=== PATIENT | female | born 1990 | race African-American/Black ===

== ENCOUNTER 2018-09-06 18:12 | Emergency (ER) | payer OTHER ==
[2018-09-06 19:54] LABS: Basophils % (A) 0 %; Eosinophils # (A) 0.2 k/uL (0-0.7); Eosinophils % (A) 2 %; HCT 37.6 % (34.0-46.0); HGB 12.8 gm/dL (11.4-16.0); Lymphocytes # (A) 2.3 k/uL (1.0-4.8); Lymphocytes % (A) 33 %; MCH 32.4 pg (25.0-35.0); MCHC 34.2 g/dL (31.0-37.0); MCV 94.7 fL (80.0-100.0); Mean Platelet Volume 7.8; Monocytes # (A) 0.3 k/uL (0-1.0); Monocytes % (A) 4 %; Neutrophils # (A) 4.2 k/uL (1.3-7.7); Neutrophils % (A) 59 %; Platelet Count 187 k/uL (150-450); RBC 3.97 m/uL (3.80-5.40); WBC 7.1 k/uL (3.8-10.6)
[2018-09-06 20:08] LABS: ALT 20 U/L (9-52); AST 22 U/L (14-36); Albumin 4.4 g/dL (3.5-5.0); Alkaline Phosphatase 67 U/L (38-126); Amylase 46 U/L (30-110); Anion Gap 10 mmol/L; Blood Urea Nitrogen 13 mg/dL (7-17); Calcium 9.3 mg/dL (8.4-10.2); Carbon Dioxide 22 mmol/L (22-30); Chloride 107 mmol/L (98-107); Glucose 124 mg/dL (74-99); Lipase 135 U/L (23-300); Potassium 3.5 mmol/L (3.5-5.1); Sodium 139 mmol/L (137-145); Total Bilirubin 0.4 mg/dL (0.2-1.3); Total Protein 7.4 g/dL (6.3-8.2)
[2018-09-06 20:48] LABS: Appearance,Urine Clear (Clear); Bilirubin,Urine Negative (Negative); Blood,Urine Negative (Negative); Color,Urine Yellow; Glucose,Urine (UA) Negative (Negative); Ketones,Urine Negative (Negative); Leukocyte Esterase,Urine Negative (Negative); Nitrite,Urine Negative (Negative); PH, Urine 6.5 (5.0-8.0); Protein,Urine Trace (Negative); Specific Gravity,Urine 1.028 (1.001-1.035)
--- NOTE | 2018-09-06 21:45 | ED ---
Abdominal Pain HPI - General Chief Complaint: Abdominal Pain Stated Complaint: abdominal pain/early Time Seen by Provider: 09/06/18 20:29 Source: patient Mode of arrival: ambulatory Limitations: no limitations - History of Present Illness Initial Comments: 27-year-old female patient presents to the emergency department today for evaluation of bilateral lower pelvic pain. Patient states that this pain started yesterday. Patient states she did have a positive test at home yesterday. Patient states her last period was 4 weeks ago. She is , with an ectopic to the left fallopian tube in March. Patient states that her period was of normal length and intensity. Patient denies any radiation of her pain to the back. She denies any abnormal vaginal bleeding or discharge. Denies any hematuria, dysuria, urinary frequency, urinary urgency. Denies any fevers or chills. Denies any constipation or diarrhea. Patient denies any recent rash, shortness breath, chest pain, numbness, tingling, dizziness, weakness, headache, visual changes, or any other complaints. - Related Data Home Medications Medication Instructions Recorded Confirmed ALPRAZolam [Xanax] 0.5 mg PO TID PRN 04/06/18 04/06/18 Albuterol Inhaler [Ventolin Hfa 1 - 2 puff PO Q4HR PRN 04/06/18 04/06/18 Inhaler] Benazepril HCl 40 mg PO DAILY 04/06/18 04/06/18 Chlorthalidone 25 mg PO BID 04/06/18 04/06/18 PARoxetine HCL [Paxil] 40 mg PO DAILY 04/06/18 04/06/18 Phentermine HCl [Adipex-P] 37.5 mg PO DAILY 04/06/18 04/06/18 Spironolactone [Aldactone] 25 mg PO DAILY 04/06/18 04/06/18 amLODIPine [Norvasc] 10 mg PO DAILY 04/06/18 04/06/18 Allergies Allergy/AdvReac Type Severity Reaction Status Date / Time No Known Allergies Allergy Verified 09/06/18 18:39 Review of Systems ROS Statement: Those systems with pertinent positive or pertinent negative responses have been documented in the HPI. ROS Other: All systems not noted in ROS Statement are negative. Past Medical History Past Medical History: Hypertension History of Any Multi-Drug Resistant Organisms: None Reported Past Surgical History: No Surgical Hx Reported Past Anesthesia/Blood Transfusion Reactions: No Reported Reaction Past Psychological History: Anxiety Smoking Status: Current every day smoker Past Alcohol Use History: Occasional Past Drug Use History: Marijuana - Past Family History Mother Family Medical History: No Reported History General Exam Limitations: no limitations General appearance: alert, in no apparent distress, other (Well-developed, well- nourished adult female patient in no acute distress. Vital signs upon presentation are temperature 98.6F, pulse 75, respirations 20, blood pressure 201/99, pulse ox 99% on room air.) Eye exam: Present: normal appearance, PERRL, EOMI. Absent: scleral icterus, conjunctival injection, periorbital swelling ENT exam: Present: normal exam, normal oropharynx, mucous membranes moist Respiratory exam: Present: normal lung sounds bilaterally. Absent: respiratory distress, wheezes, rales, rhonchi, stridor Cardiovascular Exam: Present: regular rate, normal rhythm, normal heart sounds. Absent: systolic murmur, diastolic murmur, rubs, gallop, clicks GI/Abdominal exam: Present: soft, normal bowel sounds. Absent: distended, tenderness, guarding, rebound, rigid Back exam: Present: normal inspection. Absent: CVA tenderness (R), CVA tenderness (L) Neurological exam: Present: alert, oriented X3, CN II-XII intact Psychiatric exam: Present: normal affect, normal mood Skin exam: Present: warm, dry, intact, normal color. Absent: rash Course Vital Signs 09/06/18 09/06/18 09/06/18 18:37 23:31 23:35 Temperature 98.6 F Pulse Rate 75 Respiratory 20 Rate Blood Pressure 201/99 149/95 149/85 O2 Sat by Pulse 99 Oximetry 09/07/18 00:18 Temperature 97.8 F Pulse Rate 70 Respiratory 16 Rate Blood Pressure 148/98 O2 Sat by Pulse 100 Oximetry Medical Decision Making - Medical Decision Making 27-year-old female patient presents to the emergency department today for evaluation of mild bilateral pelvic pain. Physical examination is unremarkable. Abdomen is soft and nontender. Patient denies vaginal bleeding or discharge. Did have a positive test at home yesterday. Last period was 4 weeks ago. Labs reviewed and did reveal an hCG around 100. Urinalysis showed no evidence for infection. Did perform ultrasound to rule out ectopic , there is no intrauterine gestation and no adnexal masses were noted. This most likely reflects very early . Did discuss findings and results with the patient. She is instructed to follow-up with her primary care physician and her [facility] for recheck as soon as possible. Return parameters were discussed in detail. She verbalizes understanding and agrees with this plan - Lab Data Result diagrams: 09/06/18 19:44 09/06/18 19:44 Lab Results 09/06/18 09/06/18 09/06/18 Range/Units 19:44 19:44 20:40 WBC 7.1 (3.8-10.6) k/uL RBC 3.97 (3.80-5.40) m/uL Hgb 12.8 (11.4-16.0) gm/dL Hct 37.6 (34.0-46.0) % MCV 94.7 (80.0-100.0) fL MCH 32.4 (25.0-35.0) pg MCHC 34.2 (31.0-37.0) g/dL RDW 13.0 (11.5-15.5) % Plt Count 187 (150-450) k/uL Neutrophils % 59 % Lymphocytes % 33 % Monocytes % 4 % Eosinophils % 2 % Basophils % 0 % Neutrophils # 4.2 (1.3-7.7) k/uL Lymphocytes # 2.3 (1.0-4.8) k/uL Monocytes # 0.3 (0-1.0) k/uL Eosinophils # 0.2 (0-0.7) k/uL Basophils # 0.0 (0-0.2) k/uL Sodium 139 (137-145) mmol/L Potassium 3.5 (3.5-5.1) mmol/L Chloride 107 (98-107) mmol/L Carbon Dioxide 22 (22-30) mmol/L Anion Gap 10 mmol/L BUN 13 (7-17) mg/dL Creatinine 0.89 (0.52-1.04) mg/dL Est GFR (CKD-EPI)AfAm >90 (>60 ml/min/1.73 sqM) Est GFR (CKD-EPI)NonAf 89 (>60 ml/min/1.73 sqM) Glucose 124 H (74-99) mg/dL Calcium 9.3 (8.4-10.2) mg/dL Total Bilirubin 0.4 (0.2-1.3) mg/dL AST 22 (14-36) U/L ALT 20 (9-52) U/L Alkaline Phosphatase 67 (38-126) U/L Total Protein 7.4 (6.3-8.2) g/dL Albumin 4.4 (3.5-5.0) g/dL Amylase 46 (30-110) U/L Lipase 135 (23-300) U/L HCG, Quant mIU/mL Urine Color Yellow Urine Appearance Clear (Clear) Urine pH 6.5 (5.0-8.0) Ur Specific [place] 1.028 (1.001-1.035) Urine Protein Trace H (Negative) Urine Glucose (UA) Negative (Negative) Urine Ketones Negative (Negative) Urine Blood Negative (Negative) Urine Nitrite Negative (Negative) Urine Bilirubin Negative (Negative) Urine Urobilinogen 3.0 (<2.0) mg/dL Ur Leukocyte Esterase Negative (Negative) 09/06/18 Range/Units 20:56 WBC (3.8-10.6) k/uL RBC (3.80-5.40) m/uL Hgb (11.4-16.0) gm/dL Hct (34.0-46.0) % MCV (80.0-100.0) fL MCH (25.0-35.0) pg MCHC (31.0-37.0) g/dL RDW (11.5-15.5) % Plt Count (150-450) k/uL Neutrophils % % Lymphocytes % % Monocytes % % Eosinophils % % Basophils % % Neutrophils # (1.3-7.7) k/uL Lymphocytes # (1.0-4.8) k/uL Monocytes # (0-1.0) k/uL Eosinophils # (0-0.7) k/uL Basophils # (0-0.2) k/uL Sodium (137-145) mmol/L Potassium (3.5-5.1) mmol/L Chloride (98-107) mmol/L Carbon Dioxide (22-30) mmol/L Anion Gap mmol/L BUN (7-17) mg/dL Creatinine (0.52-1.04) mg/dL Est GFR (CKD-EPI)AfAm (>60 ml/min/1.73 sqM) Est GFR (CKD-EPI)NonAf (>60 ml/min/1.73 sqM) Glucose (74-99) mg/dL Calcium (8.4-10.2) mg/dL Total Bilirubin (0.2-1.3) mg/dL AST (14-36) U/L ALT (9-52) U/L Alkaline Phosphatase (38-126) U/L Total Protein (6.3-8.2) g/dL Albumin (3.5-5.0) g/dL Amylase (30-110) U/L Lipase (23-300) U/L HCG, Quant 105.7 mIU/mL Urine Color Urine Appearance (Clear) Urine pH (5.0-8.0) Ur Specific [place] (1.001-1.035) Urine Protein (Negative) Urine Glucose (UA) (Negative) Urine Ketones (Negative) Urine Blood (Negative) Urine Nitrite (Negative) Urine Bilirubin (Negative) Urine Urobilinogen (<2.0) mg/dL Ur Leukocyte Esterase (Negative) - Radiology Data Radiology results: report reviewed, image reviewed Transvaginal ultrasound of the pelvis was obtained. Report was reviewed in its entirety. Impression by Dr. Thompson shows no intrauterine gestation. 2 cm hemorrhagic right ovarian corpus luteum cyst. 5 cm septated right ovarian cyst. Left ovary unremarkable. No evidence for torsion. No free fluid. No adnexal mass. Disposition Clinical Impression: Early stage of , Pelvic pain Disposition: HOME SELF-CARE Condition: Good Instructions (If sedation given, give patient instructions): Pelvic Pain in Women (ED), Abdominal Pain in (ED) Additional Instructions: Increase fluids. Follow-up with her primary care physician for recheck in 1-2 days. Follow-up with [facility] for recheck as soon as possible. Return to the emergency department immediately for any new, worsening, or concerning symptoms. Is patient prescribed a controlled substance at d/c from ED?: No Referrals: German Dalton MD [Primary Care Provider] - 1-2 days Time of Disposition: 00:08
--- NOTE | 2018-09-06 23:23 | US ---
EXAM: US Pelvis, Transvaginal CLINICAL HISTORY: ITS.REASON US Reason: Pain TECHNIQUE: Real-time transvaginal pelvic ultrasound (complete) with image documentation. Transvaginal imaging was used for better evaluation of the endometrium and adnexa. COMPARISON: No relevant prior studies available. FINDINGS: No intrauterine gestation. 2 cm hemorrhagic right ovarian corpus luteum cyst. 5 cm septated right ovarian cyst. Left ovary unremarkable. No evidence for torsion. No free fluid. No adnexal mass. IMPRESSION: See above
[2018-09-07 00:23] VITALS: BP 148/98; PULSE 70; RESP 16; TEMP 97.8
== END 2018-09-07 00:23 | disposition home or self-care (01) ==
LOC: EC 18:12
DX: O99.89 Other specified diseases and conditions complicating pregnancy, childbirth and the puerperium (principal); R10.2 Pelvic and perineal pain; O34.81 Maternal care for other abnormalities of pelvic organs, first trimester; N83.11 Corpus luteum cyst of right ovary; O10.911 Unspecified pre-existing hypertension complicating pregnancy, first trimester; O99.341 Other mental disorders complicating pregnancy, first trimester; F41.9 Anxiety disorder, unspecified; O99.331 Smoking (tobacco) complicating pregnancy, first trimester; F17.200 Nicotine dependence, unspecified, uncomplicated; Z3A.01 Less than 8 weeks gestation of pregnancy
CPT/HCPCS: 36415; 76801; 76817; 80053; 81003; 82150; 83690; 84702; 85025; 99284

== ENCOUNTER → 2018-09-12 | Outpatient (CLI) | payer OTHER ==
--- NOTE | 2018-09-12 15:52 | US ---
EXAMINATION TYPE: Transabdominal DATE OF EXAM: 09/12/2018 3:37 PM COMPARISON: NONE CLINICAL HISTORY: R68.89 Abn findings. EXAM PERFORMED: Transvaginal (TV) and Transabdominal (TA) EXAM MEASUREMENTS: GESTATIONAL AGE / DATING Physician Established: Not yet established Dates by LMP: (5 weeks/2 days) EDC: 05/13/2019 Dates by First Scan: No IUP visualized Dates by Current Scan for: No IUP visualized MATERNAL ANATOMY Uterus: 7.7 x 4.3 x 4.5 cm Right Ovary: 6.8 x 4.2 x 4.8 cm Left Ovary: 3.0 x 1.2 x 1.0 cm Post CDS / Adnexa: Tiny amount of free fluid visualized in cul de sac Presence of free fluid: See above Presence of corpus luteal cyst: Yes, right ovary measuring 2.4 x 1.8 x 2.3 cm GESTATION / SURVEY IUP: No IUP visualized on this exam. Date of LMP: 08/06/2018 Beta HcG (if available): Not available at this time No IUP visualized at this time. Hypoechoic area visualized within the endometrium measuring 0.5 x 0.4 x 0.8 cm. Right ovary cystic area measuring 4.2 x 2.8 x 2.7 cm. Complex area visualized right ovary measuring 2.4 x 1.8 x 2.3 cm. Tiny amount of free fluid visualized in cul de sac IMPRESSION: 1. No definite intrauterine at this time. Correlation with beta-hCG and expected menstrual dating is recommended. Early is not excluded. Other etiologies including ectopic are not excluded.
== END ==
LOC: RADUSWWP 15:01
PROVIDERS: ATTEND Obstetrics & Gynecology Obstetrics
DX: R68.89 Other general symptoms and signs (principal); O20.0 Threatened abortion; Z3A.00 Weeks of gestation of pregnancy not specified
CPT/HCPCS: 36415; 76801; 76817; 84144; 84702

== ENCOUNTER 2018-09-16 22:33 | Emergency (ER) | payer OTHER ==
[2018-09-16] MEDS ORDERED: SODIUM CHLORIDE 0.9% 1,000 ML IV ONE (23:08)
[2018-09-16] MEDS ORDERED: ACETAMINOPHEN TAB 500 MG TAB PO STA (23:08)
[2018-09-17 00:23] LABS: Basophils % (A) 1 %; Eosinophils # (A) 0.1 k/uL (0-0.7); Eosinophils % (A) 1 %; HGB 12.3 gm/dL (11.4-16.0); Lymphocytes # (A) 3.4 k/uL (1.0-4.8); Lymphocytes % (A) 49 %; MCH 31.9 pg (25.0-35.0); MCHC 33.3 g/dL (31.0-37.0); MCV 95.7 fL (80.0-100.0); Mean Platelet Volume 7.4; Monocytes # (A) 0.4 k/uL (0-1.0); Monocytes % (A) 6 %; Neutrophils % (A) 42 %; Platelet Count 178 k/uL (150-450); RBC 3.87 m/uL (3.80-5.40); RDW 12.2 % (11.5-15.5); WBC 7.1 k/uL (3.8-10.6)
[2018-09-17 00:26] LABS: ALT 21 U/L (9-52); AST 18 U/L (14-36); Albumin 4.6 g/dL (3.5-5.0); Alkaline Phosphatase 72 U/L (38-126); Anion Gap 9 mmol/L; Blood Urea Nitrogen 13 mg/dL (7-17); Carbon Dioxide 24 mmol/L (22-30); Chloride 105 mmol/L (98-107); Glucose 85 mg/dL (74-99); Potassium 4.1 mmol/L (3.5-5.1); Sodium 138 mmol/L (137-145); Total Bilirubin 0.3 mg/dL (0.2-1.3); Total Protein 7.6 g/dL (6.3-8.2)
[2018-09-17 00:47] LABS: Appearance,Urine Cloudy (Clear); Bacteria,Urine Rare /hpf; Bilirubin,Urine Negative (Negative); Blood,Urine Moderate (Negative); Color,Urine Yellow; Glucose,Urine (UA) Negative (Negative); Ketones,Urine Negative (Negative); Leukocyte Esterase,Urine Negative (Negative); Mucus,Urine Rare /hpf; Nitrite,Urine Negative (Negative); PH, Urine 6.5 (5.0-8.0); Protein,Urine Trace (Negative); RBC,Urine 36 /hpf (0-5); Specific Gravity,Urine 1.025 (1.001-1.035); Squamous Epithelial Cell,Urine 3 /hpf (0-4); WBC,Urine 5 /hpf (0-5)
--- NOTE | 2018-09-17 01:21 | US ---
EXAM: US Pelvis, Transvaginal CLINICAL HISTORY: ITS.REASON US Reason: Pain TECHNIQUE: Real-time transvaginal pelvic ultrasound (complete) with image documentation. Transvaginal imaging was used for better evaluation of the endometrium and adnexa. COMPARISON: 09/12/18 ultrasound FINDINGS: Uterus/cervix: 7 mm hypoechoic area in the endometrium. No pole or yolk sac. Normal endometrial stripe thickness. No myometrial mass. Right ovary: Measures up to 5.9 cm. Normal blood flow. 2.1 cm corpus luteal cyst. There appears to be a 1.2 cm cystic lesion adjacent to the right ovary. Left ovary: Measures up to 2.9 cm. No mass. Normal blood flow. Free fluid: Trace free fluid. IMPRESSION: 1. Nonspecific 7 mm hypoechoic area in the endometrium. May represent early gestational sac. No pole or yolk sac at this time. 2. Possible 1.2 cm cystic lesion adjacent to the right ovary. May represent a paraovarian cyst, however given lack of clear IUP, cannot rule out ectopic . Recommend short-term ultrasound and beta hCG follow-up. <MYCVCSECTION> Critical Value Communications 09/17/18 01:17 Call Doctor Regarding Above results, called ONEL Kinney on 09/17 01:17 (-04:00)
--- NOTE | 2018-09-17 01:57 | ED ---
Female Urogenital HPI - General Source: patient Mode of arrival: ambulatory Limitations: no limitations - History of Present Illness Last Menstrual Period: 08/06/18 <Toshia Rider - Last Filed: 09/17/18 02:34> <Holly Medrano - Last Filed: 09/17/18 03:02> - General Chief complaint: Vaginal Bleeding Stated complaint: Vaginal Bleeding/ Time Seen by Provider: 09/16/18 22:51 - History of Present Illness Initial comments: 27-year-old female patient who is approximately 5 weeks 6 days by her last menstrual period presents to the emergency department today for evaluation of light vaginal bleeding. Patient is with an ectopic to the le ft fallopian tube in March 2018. Patient states that bleeding started earlier today. Patient is also reporting suprapubic cramping. Denies any low back pain. Patient states that she has been to this emergency department as well as [facility] emergency department for evaluation during this . Patient states she has seen her LABORATORY SECRETARY who has performed ultrasound and hCG levels. Patient had an ultrasound on 09/12/2018 showing no evidence of IUP, but evidence of cystic lesions to the right ovary region, HCG level at that time was 1643. Patient states that she has appointment with Dr. Cueva her OBGYN tomorrow for recheck, but began having bleeding tonight so presented here for further evaluation. She denies any dysuria, urinary urgency, or urinary frequency. She denies nausea, vomiting, or diarrhea. Denies any fever or chills. Patient denies any recent rash, shortness breath, chest pain, numbness, tingling, dizziness, weakness, headache, visual changes, or any other complaints. (Toshia Rider) - Related Data Home Medications Medication Instructions Recorded Confirmed ALPRAZolam [Xanax] 0.5 mg PO TID PRN 04/06/18 04/06/18 Albuterol Inhaler [Ventolin Hfa 1 - 2 puff PO Q4HR PRN 04/06/18 04/06/18 Inhaler] Benazepril HCl 40 mg PO DAILY 04/06/18 04/06/18 Chlorthalidone 25 mg PO BID 04/06/18 04/06/18 PARoxetine HCL [Paxil] 40 mg PO DAILY 04/06/18 04/06/18 Phentermine HCl [Adipex-P] 37.5 mg PO DAILY 04/06/18 04/06/18 Spironolactone [Aldactone] 25 mg PO DAILY 04/06/18 04/06/18 amLODIPine [Norvasc] 10 mg PO DAILY 04/06/18 04/06/18 Allergies Allergy/AdvReac Type Severity Reaction Status Date / Time No Known Allergies Allergy Verified 09/16/18 22:41 Review of Systems ROS Other: All systems not noted in ROS Statement are negative. <Toshia Rider - Last Filed: 09/17/18 02:34> ROS Other: All systems not noted in ROS Statement are negative. <Holly Medrano - Last Filed: 09/17/18 03:02> ROS Statement: Those systems with pertinent positive or pertinent negative responses have been documented in the HPI. Past Medical History Past Medical History: Hypertension Additional Past Medical History / Comment(s): ovarian cyst, tubal , History of Any Multi-Drug Resistant Organisms: None Reported Past Surgical History: No Surgical Hx Reported Additional Past Surgical History / Comment(s): tubal with removal, Past Anesthesia/Blood Transfusion Reactions: No Reported Reaction Past Psychological History: Anxiety Smoking Status: Current every day smoker Past Alcohol Use History: None Reported Past Drug Use History: Marijuana - Past Family History Mother Family Medical History: No Reported History <Toshia Rider - Last Filed: 09/17/18 02:34> General Exam Limitations: no limitations General appearance: alert, in no apparent distress, other (Physical well- developed, well-nourished adult female patient in no acute distress. Vital signs upon presentation are temperature 99.3F, pulse 80, respirations 18, blood pressure 155/101, pulse ox 100% on room air.) Eye exam: Present: normal appearance, PERRL, EOMI. Absent: scleral icterus, conjunctival injection, periorbital swelling ENT exam: Present: normal exam, normal oropharynx, mucous membranes moist Respiratory exam: Present: normal lung sounds bilaterally. Absent: respiratory distress, wheezes, rales, rhonchi, stridor Cardiovascular Exam: Present: regular rate, normal rhythm, normal heart sounds. Absent: systolic murmur, diastolic murmur, rubs, gallop, clicks GI/Abdominal exam: Present: soft, normal bowel sounds. Absent: distended, tenderness, guarding, rebound, rigid Neurological exam: Present: alert, oriented X3, CN II-XII intact Psychiatric exam: Present: normal affect, normal mood Skin exam: Present: warm, dry, intact, normal color. Absent: rash <Toshia Rider - Last Filed: 09/17/18 02:34> Course Vital Signs 09/16/18 09/17/18 22:37 01:58 Temperature 99.3 F 98.9 F Pulse Rate 80 75 Respiratory 18 16 Rate Blood Pressure 155/101 178/104 O2 Sat by Pulse 100 100 Oximetry Medical Decision Making - Lab Data Result diagrams: 09/16/18 03:40 09/16/18 03:40 - Radiology Data Radiology results: report reviewed, image reviewed <Toshia Rider - Last Filed: 09/17/18 02:34> - Lab Data Result diagrams: 09/16/18 03:40 09/16/18 03:40 <Holly Medrano - Last Filed: 09/17/18 03:02> - Medical Decision Making 27-year-old female patient presented to the emergency department today for evaluation of vaginal bleeding. Physical examination is relatively unremarkabl e. Abdomen is soft and nontender. Labs reviewed and did reveal elevated hCG level at 6300. Patient is B+ ABO Rh. Ultrasound was obtained and did show no clear intrauterine at this time and a 1.2 cm cystic lesion near the right ovary concerning for ectopic . Previous ultrasounds were reviewed also no evidence for clear intrauterine . I did discuss the case with on-call LABORATORY SECRETARY Dr. Pizarro who is also concerned for ectopic at this time. She did recommend admission to the hospital for further monitoring and re-evaluation in the morning. I discussed all results in detail with the patient, answered all of her questions. She refused to be admitted to the hospital. I discussed risk of infertility, infection, and even should her condition worsen. She verbalized understanding of these risks, she informed me that she does have an appointment with her OBGYN Dr. Cueva tomorrow and will keep the appointment. Patient did sign AMA form. Return parameters were discussed in detail. (Toshia Rider) I was available for consultation in the emergency department. The history and physical exam were done by the midlevel provider. I was consulted for this patient's care. I reviewed the case with the midlevel provider and based on their presentation of the patient, I agree with the assessment and plan for admission for further evaluation by can labeler. However patient adamant that she doesn't need to stay and will follow-up palpation or return for any change. Patient left AMA. (Holly Medrano) - Lab Data Lab Results 09/16/18 09/16/18 09/16/18 Range/Units 03:40 03:40 23:40 WBC 7.1 (3.8-10.6) k/uL RBC 3.87 (3.80-5.40) m/uL Hgb 12.3 (11.4-16.0) gm/dL Hct 37.0 (34.0-46.0) % MCV 95.7 (80.0-100.0) fL MCH 31.9 (25.0-35.0) pg MCHC 33.3 (31.0-37.0) g/dL RDW 12.2 (11.5-15.5) % Plt Count 178 (150-450) k/uL Neutrophils % 42 % Lymphocytes % 49 % Monocytes % 6 % Eosinophils % 1 % Basophils % 1 % Neutrophils # 3.0 (1.3-7.7) k/uL Lymphocytes # 3.4 (1.0-4.8) k/uL Monocytes # 0.4 (0-1.0) k/uL Eosinophils # 0.1 (0-0.7) k/uL Basophils # 0.0 (0-0.2) k/uL Sodium 138 (137-145) mmol/L Potassium 4.1 (3.5-5.1) mmol/L Chloride 105 (98-107) mmol/L Carbon Dioxide 24 (22-30) mmol/L Anion Gap 9 mmol/L BUN 13 (7-17) mg/dL Creatinine 0.85 (0.52-1.04) mg/dL Est GFR (CKD-EPI)AfAm >90 (>60 ml/min/1.73 sqM) Est GFR (CKD-EPI)NonAf >90 (>60 ml/min/1.73 sqM) Glucose 85 (74-99) mg/dL Calcium 10.0 (8.4-10.2) mg/dL Total Bilirubin 0.3 (0.2-1.3) mg/dL AST 18 (14-36) U/L ALT 21 (9-52) U/L Alkaline Phosphatase 72 (38-126) U/L Total Protein 7.6 (6.3-8.2) g/dL Albumin 4.6 (3.5-5.0) g/dL HCG, Quant 6325.0 mIU/mL Urine Color Urine Appearance (Clear) Urine pH (5.0-8.0) Ur Specific [place] (1.001-1.035) Urine Protein (Negative) Urine Glucose (UA) (Negative) Urine Ketones (Negative) Urine Blood (Negative) Urine Nitrite (Negative) Urine Bilirubin (Negative) Urine Urobilinogen (<2.0) mg/dL Ur Leukocyte Esterase (Negative) Urine RBC (0-5) /hpf Urine WBC (0-5) /hpf Ur Squamous Epith Cells (0-4) /hpf Urine Bacteria (None) /hpf Urine Mucus (None) /hpf Blood Type B Positive Blood Type Recheck No 09/16/18 Range/Units 23:50 WBC (3.8-10.6) k/uL RBC (3.80-5.40) m/uL Hgb (11.4-16.0) gm/dL Hct (34.0-46.0) % MCV (80.0-100.0) fL MCH (25.0-35.0) pg MCHC (31.0-37.0) g/dL RDW (11.5-15.5) % Plt Count (150-450) k/uL Neutrophils % % Lymphocytes % % Monocytes % % Eosinophils % % Basophils % % Neutrophils # (1.3-7.7) k/uL Lymphocytes # (1.0-4.8) k/uL Monocytes # (0-1.0) k/uL Eosinophils # (0-0.7) k/uL Basophils # (0-0.2) k/uL Sodium (137-145) mmol/L Potassium (3.5-5.1) mmol/L Chloride (98-107) mmol/L Carbon Dioxide (22-30) mmol/L Anion Gap mmol/L BUN (7-17) mg/dL Creatinine (0.52-1.04) mg/dL Est GFR (CKD-EPI)AfAm (>60 ml/min/1.73 sqM) Est GFR (CKD-EPI)NonAf (>60 ml/min/1.73 sqM) Glucose (74-99) mg/dL Calcium (8.4-10.2) mg/dL Total Bilirubin (0.2-1.3) mg/dL AST (14-36) U/L ALT (9-52) U/L Alkaline Phosphatase (38-126) U/L Total Protein (6.3-8.2) g/dL Albumin (3.5-5.0) g/dL HCG, Quant mIU/mL Urine Color Yellow Urine Appearance Cloudy H (Clear) Urine pH 6.5 (5.0-8.0) Ur Specific [place] 1.025 (1.001-1.035) Urine Protein Trace H (Negative) Urine Glucose (UA) Negative (Negative) Urine Ketones Negative (Negative) Urine Blood Moderate H (Negative) Urine Nitrite Negative (Negative) Urine Bilirubin Negative (Negative) Urine Urobilinogen 2.0 (<2.0) mg/dL Ur Leukocyte Esterase Negative (Negative) Urine RBC 36 H (0-5) /hpf Urine WBC 5 (0-5) /hpf Ur Squamous Epith Cells 3 (0-4) /hpf Urine Bacteria Rare H (None) /hpf Urine Mucus Rare H (None) /hpf Blood Type Blood Type Recheck - Radiology Data Transvaginal pelvic ultrasound was obtained. Report was reviewed in its entirety. Impression by Dr. Smallwood shows nonspecific 7 mm hypoechoic area in the endometrium. May represent early gestational sac. No pole or yolk sac at this time. Possible 1.2 cm cystic lesion adjacent to the right ovary. May represent a paraovarian cyst, however given the lack of clear IUP, cannot rule out ectopic . (Toshia Rider) Disposition Is patient prescribed a controlled substance at d/c from ED?: No Time of Disposition: 01:56 <Toshia Rider - Last Filed: 09/17/18 02:34> <Holly Medrano - Last Filed: 09/17/18 03:02> Clinical Impression: Ectopic Disposition: Left Against Medical Advice Condition: Serious Instructions (If sedation given, give patient instructions): Ectopic (DC) Additional Instructions: Follow up with your OBGYN tomorrow as you have planned. Return to the emergency department for any new, worsening, or concerning symptoms. Referrals: German Dalton MD [Primary Care Provider] - 1-2 days
[2018-09-17 01:59] VITALS: BP 178/104; PULSE 75; RESP 16; TEMP 98.9
== END 2018-09-17 02:12 | disposition left against medical advice (07) ==
LOC: EC 22:33
DX: O00.90 Unspecified ectopic pregnancy without intrauterine pregnancy (principal); O34.81 Maternal care for other abnormalities of pelvic organs, first trimester; N83.201 Unspecified ovarian cyst, right side; Z67.20 Type B blood, Rh positive; O10.011 Pre-existing essential hypertension complicating pregnancy, first trimester; O99.331 Smoking (tobacco) complicating pregnancy, first trimester; O99.341 Other mental disorders complicating pregnancy, first trimester; F41.9 Anxiety disorder, unspecified; F17.200 Nicotine dependence, unspecified, uncomplicated; Z79.899 Other long term (current) drug therapy; Z98.890 Other specified postprocedural states; Z87.59 Personal history of other complications of pregnancy, childbirth and the puerperium; Z3A.01 Less than 8 weeks gestation of pregnancy; Z53.20 Procedure and treatment not carried out because of patient's decision for unspecified reasons
CPT/HCPCS: 36415; 76801; 76817; 80053; 81001; 84702; 85025; 86900; 86901; 99284

== ENCOUNTER → 2018-09-18 | Outpatient (CLI) | payer OTHER ==
[~2018-09-18] MED LIST: METHOTREXATE SODIUM (PF) 25 MG/ML 2 ML VIAL IM ONE
[2018-09-18 16:19] LABS: AST 19 U/L (14-36); Blood Urea Nitrogen 10 mg/dL (7-17)
[2018-09-18 16:21] LABS: Basophils % (A) 1 %; Eosinophils # (A) 0.1 k/uL (0-0.7); Eosinophils % (A) 2 %; HGB 12.7 gm/dL (11.4-16.0); Lymphocytes % (A) 42 %; MCH 31.1 pg (25.0-35.0); MCHC 32.6 g/dL (31.0-37.0); MCV 95.4 fL (80.0-100.0); Monocytes # (A) 0.3 k/uL (0-1.0); Monocytes % (A) 4 %; Neutrophils # (A) 3.5 k/uL (1.3-7.7); Neutrophils % (A) 49 %; Platelet Count 191 k/uL (150-450); RBC 4.09 m/uL (3.80-5.40); RDW 12.6 % (11.5-15.5); WBC 7.2 k/uL (3.8-10.6)
[2018-09-18 16:35] LABS: HCG,Quantitative Serum 11597.9 mIU/mL
[2018-09-18 16:36] VITALS: BP 149/94; PULSE 72; RESP 16; TEMP 98
== END ==
LOC: PROCWHC3 14:47
PROVIDERS: ATTEND Obstetrics & Gynecology Obstetrics
DX: O00.109 Unspecified tubal pregnancy without intrauterine pregnancy (principal); Z3A.00 Weeks of gestation of pregnancy not specified
CPT/HCPCS: 82565; 84450; 84520; 85025; 84702; 96402; J9260

== ENCOUNTER → 2018-09-21 | Outpatient (CLI) | payer OTHER | END | disposition home or self-care (01) | LOC: LABWHC1 14:09 | PROVIDERS: ATTEND Obstetrics & Gynecology Obstetrics | DX: O00.109 Unspecified tubal pregnancy without intrauterine pregnancy (principal) | CPT/HCPCS: 36415; 84702 ==

== ENCOUNTER → 2018-09-24 | Outpatient (CLI) | payer OTHER ==
[2018-09-24 13:21] LABS: HCT 35.5 % (34.0-46.0); HGB 11.8 gm/dL (11.4-16.0); MCH 31.7 pg (25.0-35.0); MCHC 33.2 g/dL (31.0-37.0); MCV 95.4 fL (80.0-100.0); Mean Platelet Volume 7.7; Platelet Count 187 k/uL (150-450); RBC 3.72 m/uL (3.80-5.40); RDW 12.5 % (11.5-15.5); WBC 4.8 k/uL (3.8-10.6)
[2018-09-24 13:34] LABS: AST 16 U/L (14-36); Blood Urea Nitrogen 7 mg/dL (7-17)
[2018-09-24 14:15] LABS: HCG,Quantitative Serum 17080.7 mIU/mL
== END ==
LOC: LAB 12:54
PROVIDERS: ATTEND Obstetrics & Gynecology Obstetrics
DX: O00.109 Unspecified tubal pregnancy without intrauterine pregnancy (principal); Z3A.00 Weeks of gestation of pregnancy not specified
CPT/HCPCS: 82565; 84450; 84520; 84702; 85027

== ENCOUNTER 2018-09-26 14:28 | Emergency (ER) | payer OTHER ==
[2018-09-26 14:34] VITALS: RESP 18
[2018-09-26 15:20] LABS: Basophils % (A) 0 %; Eosinophils # (A) 0.1 k/uL (0-0.7); Eosinophils % (A) 1 %; HCT 35.9 % (34.0-46.0); Lymphocytes # (A) 2.4 k/uL (1.0-4.8); Lymphocytes % (A) 42 %; MCH 31.3 pg (25.0-35.0); MCHC 33.3 g/dL (31.0-37.0); MCV 93.9 fL (80.0-100.0); Mean Platelet Volume 7.6; Monocytes # (A) 0.3 k/uL (0-1.0); Monocytes % (A) 5 %; Neutrophils # (A) 2.8 k/uL (1.3-7.7); Neutrophils % (A) 49 %; Platelet Count 185 k/uL (150-450); RBC 3.82 m/uL (3.80-5.40); RDW 12.9 % (11.5-15.5); WBC 5.7 k/uL (3.8-10.6)
[2018-09-26 16:00] LABS: Appearance,Urine Clear (Clear); Bilirubin,Urine Negative (Negative); Blood,Urine Negative (Negative); Color,Urine Yellow; Glucose,Urine (UA) Negative (Negative); Ketones,Urine Negative (Negative); Leukocyte Esterase,Urine Negative (Negative); Nitrite,Urine Negative (Negative); Protein,Urine Trace (Negative); Specific Gravity,Urine 1.014 (1.001-1.035); Urobilinogen,Urine <2.0 mg/dL (<2.0)
--- NOTE | 2018-09-26 16:40 | ED ---
General Adult HPI - General Chief complaint: Back Pain/Injury Stated complaint: Stomach/Back Pain Time Seen by Provider: 09/26/18 14:41 Source: patient, RN notes reviewed Mode of arrival: ambulatory Limitations: no limitations - History of Present Illness Initial comments: This a 27-year-old female presents emergency Department chief complaint of right-sided abdominal back pain. Patient has a known ectopic in which she has received methotrexate for. Patient has been trending hCG levels in which they have not trending down as fast as usual. Patient's TEA TASTER is Dr. Cueva patient denies any vaginal bleeding, nausea vomiting diarrhea cons tipation. Patient states she's developed some back pain which is new. Patient states pain is very mild in nature. - Related Data Home Medications Medication Instructions Recorded Confirmed Albuterol Inhaler [Ventolin Hfa 1 - 2 puff PO RT-Q4H PRN 04/06/18 09/26/18 Inhaler] Benazepril HCl 40 mg PO DAILY 04/06/18 09/26/18 PARoxetine HCL [Paxil] 40 mg PO DAILY 04/06/18 09/26/18 Spironolactone [Aldactone] 25 mg PO DAILY 04/06/18 09/26/18 amLODIPine [Norvasc] 10 mg PO DAILY 04/06/18 09/26/18 ALPRAZolam [Xanax] 1 mg PO TID PRN 09/26/18 09/26/18 Chlorthalidone 25 mg PO DAILY 09/26/18 09/26/18 Ergocalciferol (Vitamin D2) 50,000 unit PO Q14D 09/26/18 09/26/18 [Drisdol] hydrALAZINE HCL [Apresoline] 100 mg PO BID 09/26/18 09/26/18 Allergies Allergy/AdvReac Type Severity Reaction Status Date / Time No Known Allergies Allergy Verified 09/26/18 15:01 Review of Systems ROS Statement: Those systems with pertinent positive or pertinent negative responses have been documented in the HPI. ROS Other: All systems not noted in ROS Statement are negative. Past Medical History Past Medical History: Hypertension Additional Past Medical History / Comment(s): ovarian cyst, tubal x 2 History of Any Multi-Drug Resistant Organisms: None Reported Past Surgical History: No Surgical Hx Reported Additional Past Surgical History / Comment(s): tubal with removal, Past Anesthesia/Blood Transfusion Reactions: No Reported Reaction Past Psychological History: Anxiety Smoking Status: Current every day smoker Past Alcohol Use History: None Reported Past Drug Use History: Marijuana - Past Family History Mother Family Medical History: No Reported History General Exam Limitations: no limitations General appearance: alert, in no apparent distress Head exam: Present: atraumatic, normocephalic, normal inspection Respiratory exam: Present: normal lung sounds bilaterally. Absent: respiratory distress, wheezes, rales, rhonchi, stridor Cardiovascular Exam: Present: regular rate, normal rhythm, normal heart sounds. Absent: systolic murmur, diastolic murmur, rubs, gallop, clicks GI/Abdominal exam: Present: soft, tenderness (Minimal right-sided), normal bowel sounds. Absent: distended, guarding, rebound, rigid Back exam: Absent: tenderness, CVA tenderness (R), CVA tenderness (L), paraspinal tenderness, vertebral tenderness Course Vital Signs 09/26/18 14:31 Temperature 98.5 F Pulse Rate 81 Respiratory 18 Rate Blood Pressure 148/86 O2 Sat by Pulse 98 Oximetry Medical Decision Making - Medical Decision Making 27-year-old female presented for abdominal back pain. Patient's symptoms are very mild. Patient current hCG level has trended down from prior. I did discuss the case with her TEA TASTER who recommends a second dose of methotrexate. She is to have repeat labs and 4 days in 7 days. She is highly advised that she needs a follow-up in office as she has been directed in the past. - Lab Data Result diagrams: 09/26/18 15:02 Lab Results 09/26/18 09/26/18 09/26/18 Range/Units 15:02 15:02 15:40 WBC 5.7 (3.8-10.6) k/uL RBC 3.82 (3.80-5.40) m/uL Hgb 12.0 (11.4-16.0) gm/dL Hct 35.9 (34.0-46.0) % MCV 93.9 (80.0-100.0) fL MCH 31.3 (25.0-35.0) pg MCHC 33.3 (31.0-37.0) g/dL RDW 12.9 (11.5-15.5) % Plt Count 185 (150-450) k/uL Neutrophils % 49 % Lymphocytes % 42 % Monocytes % 5 % Eosinophils % 1 % Basophils % 0 % Neutrophils # 2.8 (1.3-7.7) k/uL Lymphocytes # 2.4 (1.0-4.8) k/uL Monocytes # 0.3 (0-1.0) k/uL Eosinophils # 0.1 (0-0.7) k/uL Basophils # 0.0 (0-0.2) k/uL HCG, Quant 35219.6 mIU/mL Urine Color Yellow Urine Appearance Clear (Clear) Urine pH 7.0 (5.0-8.0) Ur Specific [place] 1.014 (1.001-1.035) Urine Protein Trace H (Negative) Urine Glucose (UA) Negative (Negative) Urine Ketones Negative (Negative) Urine Blood Negative (Negative) Urine Nitrite Negative (Negative) Urine Bilirubin Negative (Negative) Urine Urobilinogen <2.0 (<2.0) mg/dL Ur Leukocyte Esterase Negative (Negative) Disposition Clinical Impression: Ectopic Disposition: HOME SELF-CARE Condition: Stable Instructions (If sedation given, give patient instructions): Ectopic (DC) Additional Instructions: Please return to the Emergency Department if symptoms worsen or any other concerns. Is patient prescribed a controlled substance at d/c from ED?: No Referrals: German Daltno MD [Primary Care Provider] - 1-2 days Kailey Cueva DO [Doctor of Osteopathic Medicine] - 1-2 days Time of Disposition: 16:39
[2018-09-26] MEDS ORDERED: METHOTREXATE SODIUM (PF) 25 MG/ML 2 ML VIAL IM ONE (17:00)
[2018-09-26 18:36] VITALS: BP 160/90; PULSE 85; TEMP 97.3
== END 2018-09-26 17:15 | disposition home or self-care (01) ==
LOC: EC 14:28
DX: O00.90 Unspecified ectopic pregnancy without intrauterine pregnancy (principal); I10 Essential (primary) hypertension; F41.9 Anxiety disorder, unspecified; F17.200 Nicotine dependence, unspecified, uncomplicated; Z79.899 Other long term (current) drug therapy
CPT/HCPCS: 36415; 85025; 81003; 84702; 99284; 96372; J9260

== ENCOUNTER 2020-07-07 06:09 | Emergency (ER) | payer OTHER ==
[2020-07-07 06:15] VITALS: TEMP 97.8
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
[2020-07-07] MEDS ORDERED: LABETALOL 200 MG TAB PO STA (06:51)
[2020-07-07 07:23] LABS: Appearance,Urine Cloudy (Clear); Bacteria,Urine Rare /hpf; Bilirubin,Urine Negative (Negative); Blood,Urine Negative (Negative); Calcium Oxalate Crystals,Urine Occasional /hpf; Color,Urine Yellow; Glucose,Urine (UA) Negative (Negative); Hyaline Casts,Urine 3 /lpf (0-2); Ketones,Urine Negative (Negative); Leukocyte Esterase,Urine Moderate (Negative); Mucus,Urine Moderate /hpf; Nitrite,Urine Negative (Negative); PH, Urine 6.5 (5.0-8.0); Protein,Urine 1+ (Negative); RBC,Urine 2 /hpf (0-5); Specific Gravity,Urine 1.034 (1.001-1.035); Squamous Epithelial Cell,Urine 8 /hpf (0-4); WBC,Urine 4 /hpf (0-5)
[2020-07-07 07:41] VITALS: RESP 16
--- NOTE | 2020-07-07 08:02 | US ---
EXAMINATION TYPE: US OB >= 14 wk fetus DATE OF EXAM: 07/07/2020 COMPARISON: None CLINICAL HISTORY: Positive beta-hCG test. Pain. TECHNIQUE: Transabdominal (TA) GESTATIONAL AGE / DATING Physician Established: (19 weeks/0 days) EDC: 12/01/2020 Dates by LMP: (19 weeks/0 days) * EDC: 12/01/2020 Dates by First Scan: No previous this is first scan Dates by Current Scan: (18 weeks/6 days) EDC: 12/02/2020 SURVEY IUP: Single PLACENTA: Posterior PREVIA: No Previa JUSTIN: 14.3 cm Normal CERVICAL LENGTH (transabdominal: norm > 3.0cm): 3.6 cm BIOMETRY PRESENTATION: Variable LIE: Longitudinal BPD: 4.1 cm 18 weeks / 3 days HC: 15.9 cm 18 weeks / 6 days AC: 13.8 cm 19 weeks / 2 days FL: 3.04 cm 19 weeks / 3 days ESTIMATED WEIGHT IN GRAMS: 282.84 grams ESTIMATED WEIGHT IN LBS/OZ: 0 lbs. 10 oz. WEIGHT PERCENTAGE BASED ON ESTABLISHED DATES: 61.6% HC/AC: 1.15 cm Normal FL/AC: 21.91cm Normal HEART RATE: 140 bpm RHYTHM: Normal No abnormal cervical thinning. Slightly low lying placenta without previa. Single live intrauterine gestation redemonstrated. Calcul ated amniotic fluid index within normal limits. Variable presentation to fetus currently. biometry measurements congruent and within normal johnson its. IMPRESSION: Single live intrauterine gestation, no ultrasound evidence for complication in second tri mester .
[2020-07-07 08:12] VITALS: BP 132/81; PULSE 72
== END 2020-07-07 08:14 | disposition home or self-care (01) ==
LOC: EC 06:09
DX: O99.612 Diseases of the digestive system complicating pregnancy, second trimester (principal); K59.00 Constipation, unspecified; O23.92 Unspecified genitourinary tract infection in pregnancy, second trimester; R82.71 Bacteriuria; O10.012 Pre-existing essential hypertension complicating pregnancy, second trimester; O99.342 Other mental disorders complicating pregnancy, second trimester; F41.9 Anxiety disorder, unspecified; O99.332 Smoking (tobacco) complicating pregnancy, second trimester; F17.200 Nicotine dependence, unspecified, uncomplicated; Z3A.18 18 weeks gestation of pregnancy; Z79.899 Other long term (current) drug therapy
CPT/HCPCS: 76805; 81001; 99284